=== PATIENT | male | born 1975 | race American Indian/Alaskan Native ===

== ENCOUNTER 2019-05-09 18:55 | Observation (INO) | payer OTHER ==
--- NOTE | 2019-05-09 19:29 | Event Note ---
ED Screening Note ED Screening Note: elevated BP SINHA dizziness blurred vision chest tightness that began two days ago states he is supposed to be taking enapril/amlodipine/and crestor states he stopped taking in november PMHx HTN and HLD, pre diabetes no allergies to meds This initial assessment/diagnostic orders/clinical plan/treatment(s) is/are subject to change based on patients health status, clinical progression and re- assessment by fellow clinical providers in the ED. Further treatment and workup at subsequent clinical providers discretion. Patient/guardian urged not to elope from the ED as their condition may be serious if not clinically assessed and managed. Initial orders include: labs, EKG, UA, CXR
[2019-05-09 20:15] LABS: Basophils % (Auto) 0.5 % (0.0-1.8); Eosinophils # (Auto) 0.1 K/mm3 (0.0-0.4); Eosinophils % (Auto) 1.2 % (0.0-4.3); Hematocrit 45.2 % (35.5-45.6); Lymphocytes # (Auto) 2.8 K/mm3 (1.2-5.4); Lymphocytes % (Auto) 43.8 % (13.4-35.0); Mean Corpuscular HGB Conc 33 % (32-34); Mean Corpuscular Volume 88 fl (84-94); Monocytes # (Auto) 0.3 K/mm3 (0.0-0.8); Monocytes % (Auto) 5.2 % (0.0-7.3); Platelet Count 168 K/mm3 (140-440); Red Blood Count 5.13 M/mm3 (3.65-5.03); Red Cell Distribution Width 14.9 % (13.2-15.2)
--- NOTE | 2019-05-09 20:25 | Emergency Department Report ---
ED Chest Pain HPI - General Chief Complaint: Chest Pain Stated Complaint: DIZZY/HBP/TIGHTNESS IN CHEST Time Seen by Provider: 05/09/19 19:26 Source: patient Mode of arrival: Ambulatory Limitations: No Limitations - History of Present Illness Initial Comments: 43-year-old male with history of hypertension, hypercholesterolemia, prediabetes presents to ED with chest pain 3 days. Patient states pain initially began while he was more on the lawn. He describes her as a tightness in the middle of his chest, radiating into the left shoulder and back of the left shoulder. Patient reports associated headache and dizziness with it. Patient denies nause a, vomiting, shortness of breath. Reports some diaphoresis. Patient states pain is worse with exertion, relieved with rest. Denies any lower extremity pain or swelling. Denies tobacco or drug use. Patient states he has been out of his blood pressure medication due to lack of insurance. States he was taking enalapril and amlodipine, however he has been taking some of his mother's enalapril here and there. MD Complaint: chest pain -: days(s) (3) Onset: during exertion Pain Location: substernal Pain Radiation: LUE Severity: moderate Quality: tightness Consistency: intermittent Improves With: rest Worsens With: exertion re: diaphoresis. denies: nausea, vomting, dyspnea Other Symptoms: denies: cough, fever, leg swelling Treatments Prior to Arrival: none - Related Data Allergies Allergy/AdvReac Type Severity Reaction Status Date / Time No Known Allergies Allergy Unverified 05/09/19 18:58 Heart Score - HEART Score History: Highly suspicious EKG: Normal Age: 45-65 Risk factors: > 3 risk factors or hx of atherosclerotic disease Troponin: < normal limit HEART Score: 5 ED Review of Systems ROS: Stated complaint: DIZZY/HBP/TIGHTNESS IN CHEST Other details as noted in HPI Comment: All other systems reviewed and negative Constitutional: denies: chills, fever Respiratory: shortness of breath. denies: cough Cardiovascular: chest pain Gastrointestinal: denies: nausea, vomiting Musculoskeletal: other (denies lower extremity pain or swelling) Neurological: headache ED Past Medical Hx - Past Medical History Hx Hypertension: Yes Hx Diabetes: Yes (PRE) - Surgical History Past Surgical History?: No - Social History Smoking Status: Never Smoker Substance Use Type: None ED Physical Exam - General Limitations: No Limitations General appearance: alert, in no apparent distress - Head Head exam: Present: atraumatic, normocephalic - Eye Eye exam: Present: normal appearance, PERRL, EOMI - ENT ENT exam: Present: mucous membranes moist - Neck Neck exam: Present: normal inspection - Respiratory Respiratory exam: Present: normal lung sounds bilaterally. Absent: respiratory distress - Cardiovascular Cardiovascular Exam: Present: regular rate, normal rhythm - GI/Abdominal GI/Abdominal exam: Present: soft. Absent: distended, tenderness - Extremities Exam Extremities exam: Present: normal inspection. Absent: pedal edema, calf tenderness - Neurological Exam Neurological exam: Present: alert, oriented X3, CN II-XII intact. Absent: motor sensory deficit - Psychiatric Psychiatric exam: Present: normal affect, normal mood - Skin Skin exam: Present: warm, dry, intact, normal color ED Course Vital Signs 05/09/19 05/09/19 05/10/19 19:27 22:00 00:03 Temperature 98.3 F Pulse Rate 89 74 81 Respiratory 18 18 Rate Blood Pressure 192/106 136/85 Blood Pressure 178/87 [Left] O2 Sat by Pulse 98 96 93 Oximetry ED Medical Decision Making - Lab Data Result diagrams: 05/09/19 20:02 05/09/19 20:02 - EKG Data -: EKG Interpreted by Ar EKG shows normal: sinus rhythm, axis, intervals, QRS complexes, ST-T waves Rate: normal - EKG Data Interpretation: no acute changes - Radiology Data Radiology results: report reviewed, image reviewed - Medical Decision Making 43-year-old male presents the ED with intermittent chest pain over the last 2 days. Patient states pain initially began while he was cutting the grass. Reports the pain is aggravated by exertion, with associated diaphoresis. Pain is reported as a tightness, radiating into the left shoulder and back. Patient is noncompliant with his hypertension medication and presented to the ED severely hypertensive. Labetalol was given. CTA chest was done to rule out dissection, found to be negative. EKG shows no ST changes, troponin is negative. Will admit to the hospitalist, Dr Reyes, for further management. - Differential Diagnosis ACS, aortic dissection, PE Critical Care Time: Yes Critical care time in (mins) excluding proc time.: 35 Critical care attestation.: If time is entered above; I have spent that time in minutes in the direct care of this critically ill patient, excluding procedure time. Critical Care Time: 35 minutes ED Disposition Clinical Impression: Hypertensive emergency, Acute chest pain Disposition: -09 OP ADMIT IP TO THIS HOSP Is pt being admited?: Yes Condition: Stable Instructions: Chest Pain (ED), Hypertension (ED) Referrals: CHIVO SORIANO MD [Primary Care Provider] - 3-5 Days Time of Disposition: 01:38
--- NOTE | 2019-05-09 20:27 | XRay Report ---
CHEST 2 VIEWS INDICATION / CLINICAL INFORMATION: Chest pain. COMPARISON: None available. FINDINGS: SUPPORT DEVICES: None. HEART / MEDIASTINUM: No significant abnormality. LUNGS / PLEURA: No significant pulmonary or pleural abnormality. No pneumothorax. ADDITIONAL FINDINGS: No significant additional findings. IMPRESSION: 1. No acute findings. Signer Name: Adria Whitmore MD Signed: 05/09/2019 8:23 PM Workstation Name: [id number]
[2019-05-09 20:32] LABS: Alanine Aminotransferase 26 units/L (7-56); Albumin 4.7 g/dL (3.9-5); BUN/Creatinine Ratio 10; Blood Urea Nitrogen 12 mg/dL (9-20); Calcium 9.5 mg/dL (8.4-10.2); Hemolysis Index 12
[2019-05-09] MEDS ORDERED: ASPIRIN PO ONE (20:54)
[2019-05-09] MEDS ORDERED: NORMODYNE IV ONE (20:55)
[2019-05-09 21:35] LABS: Bilirubin,Urine NEG (Negative); Blood,Urine NEG (Negative); Color,Urine Yellow (Yellow); Mucus,Urine FEW /HPF; Protein,Urine <15 mg/dL mg/dL (Negative); RBC,Urine < 1.0 /HPF (0.0-6.0); Urobilinogen,Urine < 2.0 mg/dL (<2.0)
[2019-05-09] MEDS ORDERED: ATIVAN IV ONE (22:23)
--- NOTE | 2019-05-10 00:20 | Cat Scan Report ---
CT head/brain wo con INDICATION / CLINICAL INFORMATION: 43 years Male; MAIN: headache SHORTNESS OF BREATH DIZZINESS CHEST PAIN. TECHNIQUE: Routine CT head without contrast. All CT scans at this location are performed using CT dos e reduction for ALARA by means of automated exposure control. COMPARISON: None. FINDINGS: BRAIN / INTRACRANIAL CONTENTS: No acute hemorrhage, mass effect, midline shift, hydrocephalus, or acu te, large territorial infarct. No chronic infarct or focal atrophy. Normal brain volume and ventricul ar/sulcal size for age. No significant white matter abnormality. CRANIOCERVICAL JUNCTION: No significant abnormality. ORBITS: No significant abnormality of visualized orbits. SINUSES / MASTOIDS: Mild mucosal thickening seen in the ethmoids and maxillary antra. ADDITIONAL FINDINGS: None. IMPRESSION: 1. No focal mass, hemorrhage, hydrocephalus, or acute, large territorial infarct. Signer Name: Chuckie Trevino MD, III Signed: 05/10/2019 12:16 AM Workstation Name: [email or web address]
--- NOTE | 2019-05-10 00:40 | Cat Scan Report ---
CT angiography of the chest with intravenous contrast and multiplanar MIP reconstructions INDICATION / CLINICAL INFORMATION: Chest pain, shortness of breath and dizziness.. TECHNIQUE: Axial CT images were obtained after injection of 100 cc Omnipaque 350 IV contrast using CTA protocol. 3 plane MIP / 3D reconstructions were produced. All CT scans at this location are performed using CT dose reduction for ALARA by means of automated exposure control. COMPARISON: None available. FINDINGS: There is excellent opacification of the pulmonary arterial system bilaterally without intraluminal fi lling defect to suggest acute PTE. The thoracic aorta is normal in caliber without dissection. No cor onary artery calcification is seen. The tracheobronchial tree is normal. There is an incidental 4 mm rounded noncalcified solid nodule in the subpleural right lower lobe on axial image #264 of series #3. There are a few other scattered sm aller micronodules in the right lung. There is no evidence of adenopathy or effusion. There is a 1.4 cm simple cyst in the left kidney. There is mild diffuse fatty infiltration of the alli er. No osseous abnormality is seen. IMPRESSION: 1. No evidence of acute PTE. 2. Incidental tiny nodules in the right lung, the largest of which measures 4 mm. 3. Simple right renal cyst and mild fatty infiltration of the liver. INCIDENTAL PULMONARY NODULE RECOMMENDATIONS Solid Nodule size <6 mm -- Single or Multiple - Low Risk Patient: No routine follow-up - High Risk Patient: Optional CT at 12 months Note These recommendations do not apply to lung cancer screening, patients with immunosuppression, o r patients with known primary cancer. Note Newly detected indeterminate nodule in persons 35 years of age or older. Persons under the age of 35 should not receive follow-up unless there is a known primary cancer. Low Risk Patient -- minimal or absent history of smoking and of other known risk factors. High Risk Patient -- history of smoking or of other known risk factors. Nodule dimensions are average of long and short axes, rounded to the nearest millimeter. Based on 2017 Fleischner Society Guidelines found in Radiology 2017 284:228-243. https://doi.org/10.1 148/[email or web address] Signer Name: Bharathi Varghese MD Signed: 05/10/2019 12:36 AM Workstation Name: [email or web address]
[2019-05-10] MEDS ORDERED: SODIUM CHLORIDE FLUSH SYRINGE 10 ML IV PRN (02:47)
[2019-05-10] MEDS ORDERED: MORPHINE IV PRN (02:47)
[2019-05-10] MEDS ORDERED: PERCOCET 5/325 PO PRN (02:47)
[2019-05-10] MEDS ORDERED: TYLENOL PO PRN (02:47)
[2019-05-10] MEDS ORDERED: ZOFRAN IV PRN (02:47)
[2019-05-10] MEDS ORDERED: AMBIEN PO PRN (02:47)
--- NOTE | 2019-05-10 04:01 | History and Physical Report ---
History of Present Illness Date of examination: 05/10/19 Chief complaint: Chest pain History of present illness: Patient is a 43-year-old -[place] male with history of hypertension and HLD who presented to the ED on account of few hours history of midsternal chest pain. He described it as pressure-like in nature, rated 5 over 10 and radiates to the back. The pain waxes and wanes. Pain is worse with walking but no known relieving factors. He has associated shortness of breath, palpitation, diaphoresis, headaches and lightheadedness. He denies cough, fever, chills, leg swelling, orthopnea, PND, nausea, vomiting, syncope or loss of consciousness. Patient has a remote history of stress test which was negative. He reported that he ran out of his blood pressure medications about 6 months ago and had not been to a doctor because he is uninsured and has no primary care doctor. Past History Past Medical History: hypertension, hyperlipidemia, other (prediabetes) Past Surgical History: No surgical history Social history: other (he admits to occasional alcohol use but denies tobacco or illicit drug use) Family history: other (no known family history of hypertension, diabetes or sudden cardiac ) Medications and Allergies Allergies Allergy/AdvReac Type Severity Reaction Status Date / Time No Known Allergies Allergy Verified 05/10/19 02:52 Active Meds: Active Medications Acetaminophen (Tylenol) 650 mg PO Q4H PRN PRN Reason: Pain MILD(1-3)/Fever >100.5/SINHA Amlodipine Besylate (Norvasc) 10 mg PO QDAY MASON Aspirin (Baby Aspirin) 81 mg PO QDAY MASON Atorvastatin Calcium (Lipitor) 40 mg PO QHS MASON Famotidine (Pepcid) 20 mg PO BID MASON Morphine Sulfate (Morphine) 4 mg IV Q4H PRN PRN Reason: Pain , Severe (7-10) Ondansetron HCl (Zofran) 4 mg IV Q8H PRN PRN Reason: Nausea And Vomiting Oxycodone/Acetaminophen (Percocet 5/325) 1 tab PO Q6H PRN PRN Reason: Pain, Moderate (4-6) Sodium Chloride (Sodium Chloride Flush Syringe 10 Ml) 10 ml IV BID MASON Sodium Chloride (Sodium Chloride Flush Syringe 10 Ml) 10 ml IV PRN PRN PRN Reason: LINE FLUSH Zolpidem Tartrate (Ambien) 5 mg PO QHS PRN PRN Reason: Insomnia Review of Systems All systems: negative (all other systems reviewed with the patient and are negative unless otherwise stated) Exam - Constitutional Vitals: Temp Pulse Resp BP Pulse Ox 98.3 F 81 18 136/85 93 05/09/19 19:27 05/10/19 00:03 05/10/19 00:03 05/10/19 00:03 05/10/19 00:03 General appearance: Present: no acute distress, well-nourished - EENT Eyes: Present: PERRL, EOM intact ENT: hearing intact, clear oral mucosa - Neck Neck: Present: supple, normal ROM - Respiratory Respiratory effort: normal Respiratory: bilateral: CTA - Cardiovascular Rhythm: regular Heart Sounds: Present: S1 & S2. Absent: rub, click - Extremities Extremities: pulses symmetrical, No edema Peripheral Pulses: within normal limits - Abdominal General gastrointestinal: Present: soft, non-tender, non-distended, normal bowel sounds Male genitourinary: Present: deferred - Integumentary Integumentary: Present: clear, warm, dry - Musculoskeletal Musculoskeletal: gait normal, strength equal bilaterally - Psychiatric Psychiatric: appropriate mood/affect, intact judgment & insight - Neurologic Neurologic: CNII-XII intact, moves all extremities Results - Labs CBC & Chem 7: 05/09/19 20:02 05/09/19 20:02 Labs: Laboratory Last Values WBC 6.5 K/mm3 (4.5-11.0) 05/09/19 20:02 RBC 5.13 M/mm3 (3.65-5.03) H 05/09/19 20:02 Hgb 15.0 gm/dl (11.8-15.2) 05/09/19 20:02 Hct 45.2 % (35.5-45.6) 05/09/19 20:02 MCV 88 fl (84-94) 05/09/19 20:02 MCH 29 pg (28-32) 05/09/19 20:02 MCHC 33 % (32-34) 05/09/19 20:02 RDW 14.9 % (13.2-15.2) 05/09/19 20:02 Plt Count 168 K/mm3 (140-440) 05/09/19 20:02 Lymph % (Auto) 43.8 % (13.4-35.0) H 05/09/19 20:02 Pratt % (Auto) 5.2 % (0.0-7.3) 05/09/19 20:02 Eos % (Auto) 1.2 % (0.0-4.3) 05/09/19 20:02 Baso % (Auto) 0.5 % (0.0-1.8) 05/09/19 20:02 Lymph # 2.8 K/mm3 (1.2-5.4) 05/09/19 20:02 Pratt # 0.3 K/mm3 (0.0-0.8) 05/09/19 20:02 Eos # 0.1 K/mm3 (0.0-0.4) 05/09/19 20:02 Baso # 0.0 K/mm3 (0.0-0.1) 05/09/19 20:02 Seg Neutrophils % 49.3 % (40.0-70.0) 05/09/19 20:02 Seg Neutrophils # 3.2 K/mm3 (1.8-7.7) 05/09/19 20:02 Sodium 139 mmol/L (137-145) 05/09/19 20:02 Potassium 3.8 mmol/L (3.6-5.0) 05/09/19 20:02 Chloride 101.6 mmol/L (98-107) 05/09/19 20:02 Carbon Dioxide 27 mmol/L (22-30) 05/09/19 20:02 14 mmol/L 05/09/19 20:02 BUN 12 mg/dL (9-20) 05/09/19 20:02 1.2 mg/dL (0.8-1.5) 05/09/19 20:02 Estimated GFR > 60 ml/min 05/09/19 20:02 10 % 05/09/19 20:02 Glucose 144 mg/dL (75-100) H 05/09/19 20:02 Calcium 9.5 mg/dL (8.4-10.2) 05/09/19 20:02 0.50 mg/dL (0.1-1.2) 05/09/19 20:02 AST 25 units/L (5-40) 05/09/19 20:02 ALT 26 units/L (7-56) 05/09/19 20:02 60 units/L (35-129) 05/09/19 20:02 < 0.010 ng/mL (0.00-0.029) 05/09/19 22:19 8.2 g/dL (6.3-8.2) 05/09/19 20:02 4.7 g/dL (3.9-5) 05/09/19 20:02 1.3 % 05/09/19 20:02 Yellow (Yellow) 05/09/19 20:10 Clear (Clear) 05/09/19 20:10 6.0 (5.0-7.0) 05/09/19 20:10 Ur Specific [place] 1.017 (1.003-1.030) 05/09/19 20:10 <15 mg/dl mg/dL (Negative) 05/09/19 20:10 Neg mg/dL (Negative) 05/09/19 20:10 Neg mg/dL (Negative) 05/09/19 20:10 Neg (Negative) 05/09/19 20:10 Neg (Negative) 05/09/19 20:10 Neg (Negative) 05/09/19 20:10 < 2.0 mg/dL (<2.0) 05/09/19 20:10 Ur Leukocyte Esterase Tr (Negative) 05/09/19 20:10 4.0 /HPF (0.0-6.0) 05/09/19 20:10 < 1.0 /HPF (0.0-6.0) 05/09/19 20:10 U Epithel Cells (Auto) 1.0 /HPF (0-13.0) 05/09/19 20:10 Few /HPF 05/09/19 20:10 Assessment and Plan Assessment and plan: Acute chest pain, rule out ACS -On chest pain pathway -For further evaluation with stress test Hypertensive emergency with SBP of 192 -BP improved with labetalol in the ED -Patient reported previously taking 5mg of amlodipine and 10 mg of enalapril -Started on 10 mg of amlodipine, monitor BP and add additional medication if needed History of prediabetes -We'll check hemoglobin A1c level Hyperlipidemia -We'll check lipid panel -Patient was previously taking crestor, started on Lipitor due to cost DVT prophylaxis with SCD Disposition: Patient will be placed in observation status with plan for discharge if stress test is negative Time spent: 38 minutes
[2019-05-10] MEDS ORDERED: APRESOLINE IV PRN (04:06)
[2019-05-10] MEDS ORDERED: LEXISCAN IV ONE ×2 (06:51→06:56)
[2019-05-10] MEDS ORDERED: NORVASC PO SCH (10:00)
[2019-05-10] MEDS ORDERED: BABY ASPIRIN PO SCH (10:00)
[2019-05-10] MEDS ORDERED: PEPCID PO SCH (10:00)
[2019-05-10] MEDS ORDERED: SODIUM CHLORIDE FLUSH SYRINGE 10 ML IV SCH (10:00)
[2019-05-10] MEDS ORDERED: APRESOLINE ONE (10:11)
--- NOTE | 2019-05-10 12:25 | Discharge Summary ---
Providers - Providers Date of Admission: 05/10/19 02:47 Attending physician: QUINN PITT MD [facility] Reason for admission: CHEST PAIN Condition: Stable Hospital course: Patient is a 43-year-old -[place] male with history of hypertension and HLD who presented to the ED on account of few hours history of midsternal chest pain. He described it as pressure-like in nature, rated 5 over 10 and radiates to the back. The pain waxes and wanes. Pain is worse with walking but no known relieving factors. He has associated shortness of breath, palpitation, diaphoresis, headaches and lightheadedness. He denies cough, fever, chills, leg swelling, orthopnea, PND, nausea, vomiting, syncope or loss of consciousness. Patient has a remote history of stress test which was negative. He reported that he ran out of his blood pressure medications about 6 months ago and had not been to a doctor because he is uninsured and has no primary care doctor. * Per patient he relocted to [place] 6 months ago and could not go back to his doctors * He was recently informed of nodules on left lung, this was not seen here but on the right lung and patient advised, He will have his PCP review both records. He denies tobacco hx, family or personal hx of CA * Right renal cyst noted on ct along with fatty liver infiltration. patient advised * 15 mins counselling on diet, medication compliance. provided Acute chest pain, rule out ACS -Secondary to Hypertensive urgency with Underlying costochondritis Hypertensive Urgency,. -Counselling provided for 30mins. Meds renewed History of prediabetes -A1C, 6.3. lifestyle modification discussed in detail Hyperlipidemia - Fatty liver Pulmonary nodule. As discussed above Left renal cyst Disposition: DC- TO HOME OR SELFCARE Time spent for discharge: 35 mins Core Measure Documentation - Palliative Care Palliative Care/ Comfort Measures: Not Applicable - Core Measures Any of the following diagnoses?: none Exam - Constitutional Vitals: Temp Pulse Resp BP Pulse Ox 98.4 F 90 20 170/94 97 05/10/19 11:36 05/10/19 12:17 05/10/19 11:36 05/10/19 12:17 05/10/19 11:36 General appearance: Present: no acute distress, well-nourished - EENT Eyes: Present: PERRL, EOM intact ENT: hearing intact, clear oral mucosa, dentition normal - Neck Neck: Present: supple, normal ROM - Respiratory Respiratory effort: normal Respiratory: bilateral: CTA - Cardiovascular Rhythm: regular Heart Sounds: Present: S1 & S2. Absent: systolic murmur, diastolic murmur - Extremities Extremities: no ischemia, pulses intact, pulses symmetrical, No edema, normal temperature, normal color, Full ROM Peripheral Pulses: within normal limits - Abdominal General gastrointestinal: Present: soft, non-tender, non-distended, normal bowel sounds - Integumentary Integumentary: Present: clear, warm, dry - Musculoskeletal Musculoskeletal: strength equal bilaterally - Psychiatric Psychiatric: appropriate mood/affect, intact judgment & insight, memory intact, cooperative - Neurologic Neurologic: CNII-XII intact, moves all extremities - Allied Health Allied health notes reviewed: nursing Plan Activity: advance as tolerated, fall precautions Diet: low fat Special Instructions: record daily weights, record daily BP diary Follow up with: CHIVO SORIANO MD [Primary Care Provider] - 3-5 Days Prescriptions: AtorvaSTATin [Lipitor] 40 mg PO QHS #30 tablet amLODIPine [Norvasc] 10 mg PO QDAY #30 tablet Enalapril Maleate [Vasotec] 10 mg PO DAILY #30 tablet
[2019-05-10] MEDS ORDERED: ZESTRIL PO SCH (13:00)
[2019-05-10 15:24] VITALS: BP 144/90
--- NOTE | 2019-05-17 12:21 | Treadmill Report ---
THALLIUM STRESS TEST LEFT VENTRICLE: Left ventricular chamber size is within normal spread. Perfusion study demonstrates homogeneous uptake of the tracer in all segments, no significant perfusion defects identified. Gated analysis demonstrates normal left ventricular systolic function, ejection fraction 75%. CONCLUSION: Normal myocardial perfusion study. JOB# [id number] CA/NTS
== END 2019-05-10 15:25 | disposition home or self-care (01) ==
LOC: ED 18:55 → 4A 05-10 02:47
PROVIDERS: ADMIT Internal Medicine; ATTEND Internal Medicine
DX: R07.89 Other chest pain (principal); I16.1 Hypertensive emergency; E78.5 Hyperlipidemia, unspecified; I10 Essential (primary) hypertension; Z79.82 Long term (current) use of aspirin
CPT/HCPCS: 36415; 70450; 71046; 71275; 78452; 80053; 80061; 81001; 83036; 84484; 85025; 93005; 93010; 93017; 96374; 96375; 99291; A9502; G0378; J0360; J2060; J2785; Q9967

== ENCOUNTER 2019-05-12 13:08 | Emergency (ER) | payer OTHER ==
[2019-05-12 13:31] VITALS: BP 140/84
--- NOTE | 2019-05-12 13:31 | Event Note ---
ED Screening Note Date of service: 05/12/19 Time: 13:29 ED Screening Note: 43 y/o male comes in for weakness times today. Patient was admitted recently. Never followed up with any provider. This initial assessment/diagnostic orders/clinical plan/treatment(s) is/are subject to change based on patients health status, clinical progression and re- assessment by fellow clinical providers in the ED. Further treatment and workup at subsequent clinical providers discretion. Patient/guardian urged not to elope from the ED as their condition may be serious if not clinically assessed and managed. Initial orders include:
--- NOTE | 2019-05-12 14:09 | XRay Report ---
CHEST 2 VIEWS INDICATION / CLINICAL INFORMATION: germán. COMPARISON: 05/09/2019 FINDINGS: SUPPORT DEVICES: None. HEART / MEDIASTINUM: No significant abnormality. LUNGS / PLEURA: No significant pulmonary or pleural abnormality. No pneumothorax. ADDITIONAL FINDINGS: No significant additional findings. IMPRESSION: 1. No acute findings. No interval change. Signer Name: Narda Edward MD Signed: 05/12/2019 2:04 PM Workstation Name: [id number]
[2019-05-12 14:13] LABS: Basophils % (Auto) 0.5 % (0.0-1.8); Eosinophils # (Auto) 0.2 K/mm3 (0.0-0.4); Eosinophils % (Auto) 2.2 % (0.0-4.3); Hematocrit 48.9 % (35.5-45.6); Lymphocytes # (Auto) 1.9 K/mm3 (1.2-5.4); Lymphocytes % (Auto) 21.9 % (13.4-35.0); Mean Corpuscular HGB Conc 33 % (32-34); Mean Corpuscular Volume 89 fl (84-94); Monocytes # (Auto) 0.6 K/mm3 (0.0-0.8); Monocytes % (Auto) 6.8 % (0.0-7.3); Platelet Count 173 K/mm3 (140-440); Red Blood Count 5.52 M/mm3 (3.65-5.03)
[2019-05-12 14:40] LABS: Alanine Aminotransferase 29 units/L (7-56); Albumin 4.8 g/dL (3.9-5); BUN/Creatinine Ratio 8; Blood Urea Nitrogen 10 mg/dL (9-20); Calcium 9.3 mg/dL (8.4-10.2); Hemolysis Index 37
--- NOTE | 2019-05-12 15:02 | Emergency Department Report ---
- General Chief complaint: Weakness Stated complaint: WEAKNESS/FATIGUE Time Seen by Provider: 05/12/19 13:28 Source: patient Mode of arrival: Ambulatory Limitations: No Limitations - History of Present Illness Initial comments: Patient reports no PCP. Requesting switch his cholesterol medicine to crestelsi. Complaint: generalized weakness -: Gradual, days(s) (approximately 3 days) Location: generalized Severity: mild Severity scale (0 -10): 1 Consistency: intermittent Improves with: none Worsens with: exertion Associated Symptoms: other (palpitations). denies: chest pain, confusion, dark stools, diaphoresis, dysuria, easy bruising, fever/chills, headaches, loss of appetite, nausea/vomiting, myalgias, rash, shortness of breath, syncope - Related Data Previous Rx's Medication Instructions Recorded Last Taken Type AtorvaSTATin [Lipitor] 40 mg PO QHS #30 tablet 05/10/19 Unknown Rx Enalapril Maleate [Vasotec] 10 mg PO DAILY #30 tablet 05/10/19 Unknown Rx amLODIPine [Norvasc] 10 mg PO QDAY #30 tablet 05/10/19 Unknown Rx Allergies Allergy/AdvReac Type Severity Reaction Status Date / Time No Known Allergies Allergy Verified 05/10/19 02:52 ED Review of Systems ROS: Stated complaint: WEAKNESS/FATIGUE Other details as noted in HPI Other: GENERAL: No weight change, fatigue, fever, chills, or night sweats SKIN: No changes in skin or hair, no itching, no rashes, no jaundice HEAD: No trauma, headache, or visual changes EYES: No blurriness, tearing, itching, acute visual loss, conjunctival discoloration, or scleral icterus EARS: No hearing loss, tinnitus, vertigo, or earache NOSE: No rhinorrhea, stuffiness, sneezing, itching, or epistaxis MOUTH: No bleeding gums, hoarseness, sore throat, or swelling CARDIAC: Palpitations. No new murmur, chest pain, dyspnea on exertion, orthopn ea, PND, or edema RESPIRATORY: No shortness of breath, wheeze, cough, sputum production, hemoptysis, pneumonia, asthma, bronchitis, or emphysema GI: No change in appetite, nausea, vomiting, dysphagia, diarrhea, constipation, hematemesis, melena, hematochezia, or abdominal pain URINARY: No frequency, urgency, polyuria, dysuria, hematuria, or incontinence MUSCULOSKELETAL: No muscle weakness, joint stiffness, decrease in range of motion, redness, swelling NEUROLOGIC: Weakness. No headache, loss of sensation, numbness, tingling, tremors, paralysis, seizures HEMATOLOGIC: No anemia, easy bruising, bleeding, petechiae, or purpura ENDOCRINE: No hot or cold intolerance, sweating, polyuria, polydipsia or, polyphagia no thyroid problems PSYCHIATRIC: Anxiety. No change in mood, no depression ED Past Medical Hx - Past Medical History Previous Medical History?: Yes Hx Hypertension: Yes Hx Diabetes: Yes (PRE) - Surgical History Past Surgical History?: No - Social History Smoking Status: Never Smoker Substance Use Type: None - Medications Home Medications: Home Medications Medication Instructions Recorded Confirmed Last Taken Type AtorvaSTATin [Lipitor] 40 mg PO QHS #30 tablet 05/10/19 Unknown Rx Enalapril Maleate [Vasotec] 10 mg PO DAILY #30 tablet 05/10/19 Unknown Rx amLODIPine [Norvasc] 10 mg PO QDAY #30 tablet 05/10/19 Unknown Rx ED Physical Exam - General Limitations: No Limitations - Other Other exam information: GENERAL: Patient in no acute distress HEAD: Normocephalic, atraumatic EYES: PERRLA, EOM intact, no scleral icterus, no conjunctival hemorrhage, visual ny and acuity wnl NOSE: No tenderness, discharge, sinus tenderness MOUTH: No erythema, bleeding, exudate HEART: Regular rate and rhythm, no murmur, S1-S2 are auscultated, pulses are symmetric LUNGS: Bilateral breath sounds, No tachypnea, No retractions, No wheezing, rales, rhonchi ABDOMEN: Normal bowel sounds, abdomen soft, no tenderness, no rebound, no guarding, no distention, no masses, no CVA tenderness MUSCULOSKELETAL: Normal joint range of motion, no redness, no swelling, no tenderness NEUROLOGIC: GCS 15, Alert and Oriented x3, Cranial nerves intact, normal sensation, normal strength, normal gait, no cerebellar deficit, NIHSS 0 PSYCHIATRIC: No homicidal or suicidal ideation, no anxiety, no depression, no hallucinations SKIN: Skin is warm and dry, no wounds, no rashes - Level of Consciousness 1a. Level of Consciousness: alert/keenly responsive - LOC Questions 1b. LOC Questions: answers both correctly - LOC Command 1c. LOC Commands: performs tasks correctly - Best Gaze 2. Best Gaze: normal - Visual 3. Visual: no visual loss - Facial Palsy 4. Facial Palsy: normal symmetrical movement - Motor Arm 5a. Motor Arm Left: no drift 5b. Motor Arm Right: no drift - Motor Leg 6a. Motor Leg Left: no drift 6b. Motor Leg Right: no drift - Limb Ataxia 7. Limb Ataxia: absent - Sensory 8. Sensory: normal - Best Language 9. Best Language: no aphasia - Dysarthria 10. Dysarthria: normal - Extinction and Inattention 11. Extinction/Inattention: no abnormality - Scoring Total Score: 0 Stroke Severity: No Stroke Symptoms ED Course Vital Signs 05/12/19 13:28 Temperature 98.3 F Pulse Rate 98 H Respiratory 18 Rate Blood Pressure 140/84 O2 Sat by Pulse 96 Oximetry ED Medical Decision Making - Lab Data Result diagrams: 05/12/19 13:46 05/12/19 13:46 Laboratory Last Values WBC 8.8 K/mm3 (4.5-11.0) 05/12/19 13:46 RBC 5.52 M/mm3 (3.65-5.03) H 05/12/19 13:46 Hgb 16.0 gm/dl (11.8-15.2) H 05/12/19 13:46 Hct 48.9 % (35.5-45.6) H 05/12/19 13:46 MCV 89 fl (84-94) 05/12/19 13:46 MCH 29 pg (28-32) 05/12/19 13:46 MCHC 33 % (32-34) 05/12/19 13:46 RDW 15.0 % (13.2-15.2) 05/12/19 13:46 Plt Count 173 K/mm3 (140-440) 05/12/19 13:46 Lymph % (Auto) 21.9 % (13.4-35.0) 05/12/19 13:46 Glades % (Auto) 6.8 % (0.0-7.3) 05/12/19 13:46 Eos % (Auto) 2.2 % (0.0-4.3) 05/12/19 13:46 Baso % (Auto) 0.5 % (0.0-1.8) 05/12/19 13:46 Lymph # 1.9 K/mm3 (1.2-5.4) 05/12/19 13:46 Glades # 0.6 K/mm3 (0.0-0.8) 05/12/19 13:46 Eos # 0.2 K/mm3 (0.0-0.4) 05/12/19 13:46 Baso # 0.0 K/mm3 (0.0-0.1) 05/12/19 13:46 Seg Neutrophils % 68.6 % (40.0-70.0) 05/12/19 13:46 Seg Neutrophils # 6.1 K/mm3 (1.8-7.7) 05/12/19 13:46 Sodium 139 mmol/L (137-145) 05/12/19 13:46 Potassium 4.4 mmol/L (3.6-5.0) 05/12/19 13:46 Chloride 100.0 mmol/L (98-107) 05/12/19 13:46 Carbon Dioxide 26 mmol/L (22-30) 05/12/19 13:46 17 mmol/L 05/12/19 13:46 BUN 10 mg/dL (9-20) 05/12/19 13:46 1.2 mg/dL (0.8-1.5) 05/12/19 13:46 Estimated GFR > 60 ml/min 05/12/19 13:46 8 % 05/12/19 13:46 Glucose 99 mg/dL (75-100) 05/12/19 13:46 Calcium 9.3 mg/dL (8.4-10.2) 05/12/19 13:46 1.10 mg/dL (0.1-1.2) 05/12/19 13:46 AST 29 units/L (5-40) 05/12/19 13:46 ALT 29 units/L (7-56) 05/12/19 13:46 67 units/L (35-129) 05/12/19 13:46 < 0.010 ng/mL (0.00-0.029) 05/12/19 13:46 8.6 g/dL (6.3-8.2) H 05/12/19 13:46 4.8 g/dL (3.9-5) 05/12/19 13:46 1.3 % 05/12/19 13:46 - EKG Data When compared to previous EKG there are: no significant change - Radiology Data Radiology results: report reviewed - Medical Decision Making Patient comfortable. Updated with results. Plan discharge with outpatient follow up. Return if any worsening. Critical care attestation.: If time is entered above; I have spent that time in minutes in the direct care of this critically ill patient, excluding procedure time. ED Disposition Clinical Impression: Palpitations, Weakness Disposition: - TO HOME OR SELFCARE Is pt being admited?: No Condition: Stable Instructions: Palpitations (ED), Weakness (ED) Referrals: BRITTNI KHAN MD [Staff Physician] - 2-3 Days [facility] [Outside] - 2-3 Days Time of Disposition: 15:15
== END 2019-05-12 15:40 | disposition home or self-care (01) ==
LOC: ED 13:08
DX: R00.2 Palpitations (principal); R53.1 Weakness; I10 Essential (primary) hypertension; E11.9 Type 2 diabetes mellitus without complications
CPT/HCPCS: 36415; 71046; 80053; 84484; 85025; 93005; 93010